=== PATIENT | female | born 1950 ===

== ENCOUNTER 2021-09-18 05:20 | Day surgery (SDC) | payer OTHER ==
[~2021-09-18 05:20] MED LIST: TOPROL XL25 M1 PO; ZESTRIL20 MG PO
== END 2021-09-18 18:26 | disposition home or self-care (01) ==
LOC: CIR.AMB 05:20
PROVIDERS: ATTEND Surgery
DX: K80.10 Calculus of gallbladder with chronic cholecystitis without obstruction (principal); Z20.822 Contact with and (suspected) exposure to COVID-19